=== PATIENT | female | born 1975 | race Caucasian/White ===

== ENCOUNTER 2024-09-29 11:07 | Outpatient (AMB) | payer OTHER, SELFPAY ==
--- NOTE | 2024-09-29 11:08 | MHC.OFFVIS ---
Vital Signs 09/29/24 11:25 Height 4 ft 10 in Weight 117 lb 4.575 oz BMI 24.5 BP 97/77 Blood Pressure Location Rt brachial Position Sitting Pulse 75 Intake Visit Reasons: pre colonoscopy Intake Note: New patient in office today for colonoscopy screening. CC: Patient reports not having BM for 4- 5 days, abdominal bloating, occasional vomiting and light blood in the stool. She reports hx of bowel obstruction about 10 years ago that required surgery. Bereavement Counselor Required: No Allergies Penicillins Allergy (Unknown, Verified 09/29/24 11:27) Unknown HPI HPI pre colonoscopy: Details: 49-year-old female here for preprocedural meeting to discuss a screening colonoscopy. [facility] [place]. PMX Dilated cardiomyopathy Bipolar disorder Chronic alcoholism in remission Pancreatitis COPD Smoker Hypothyroid Alcoholic fatty liver Lumbar degenerative disc disease Cervical degenerative disc disease Anxiety disorder Seizures - controlled * SURGICAL HISTORY Right carpal tunnel release Right 1st carpometacarpal arthroplasty Hysterectomy Cervical disc compression with diskectomy Cataract surgery bilateral ? small bowel resection Appendectomy breast lymph node removed * ALLERGIES Penicillin * [employer] [facility]: none TODAY'S VISIT She says she has a hx 10 yrs ago of bowel obstruction, s/p surgery. She was supposed to have a colonoscopy but vomited the prep. She suffers CIC and at times won't move her bowels q4-7 days. She has had no success with using colace, miralax, enemas. No upper GI problems. She drinks mostly soda but no coffee or tea, eats a lot of veggies but not so many fruits. Her COPD is well controlled as are her cardiac and seizure problems. There are no prior problems with anesthesia or sedation. NO ID problems. No known CRC or polyps. We will start her on a trial of bisacodyl 2 tablets in the evening and if this is unsuccessful progress to something fancy or like Linzess or Trulance. Return office visit in 3 weeks [facility] Medical History (Updated 09/29/24 @ 12:03 by ALICIA Mahmood) Postoperative intestinal obstruction Surgical History (Updated 09/29/24 @ 11:31 by RICKY Wang) Hx of appendectomy H/O cervical discectomy History of hysterectomy H/O hand surgery History of carpal tunnel release Status post laser cataract surgery of both eyes Family History (Updated 09/29/24 @ 11:33 by RICKY Wang) Maternal Aunt Lung cancer Family/Other Breast cancer Metastasis from breast cancer Social History (Updated 09/29/24 @ 11:34 by RICKY Wang) Alcohol intake: current Alcohol intake frequency: a few times a month Alcohol type: beer Patient Tobacco Use Status: Current everyday Tobacco user Cigarettes Per Day: 10 Years Smoked: 28 years Substance Use Type: Marijuana Review of Systems Const Denies fatigue, Denies fever(s), Denies night sweats, Denies poor appetite and Denies weight loss ENT Reports Normal hearing present, Denies dental pain, Denies dysphagia, Denies hearing loss, Denies mouth pain, Denies odynophagia, Denies throat swelling, Denies tongue swelling and Reports other (Dentition adequate) Card Reports no additional complaints Resp Reports no additional complaints GI Details: Denies abdominal pain, Denies melena, Denies bloating, Denies hematochezia, Reports constipation, Denies GI cramping, Denies dysphagia, Denies excessive flatus, Denies early satiety, Denies heartburn, Denies diarrhea, Denies nausea, Denies odynophagia, Denies vomiting and Denies hematemesis Skin/Breast Denies pruritus, Denies lesions, Denies rash and Denies jaundice Neuro Reports Normal hearing present and Denies Abnormal speech present Endo Denies fatigue Aller/Immun Denies throat swelling and Denies tongue swelling Physical Exam Vital Signs: Last Vital Signs Pulse 75 09/29/24 11:25 BP 97/77 09/29/24 11:25 BMI result Body Mass Index 24.5 Const General: cooperative, no acute distress, well developed and well groomed Nutritional Appearance: average body habitus and well nourished Orientation/consciousness: oriented to person, oriented to place and oriented to time Limitations: No language barrier HEENT Head: Yes normocephalic and Yes atraumatic Eyes General: appearance normal, both eyes and all related structures Pupils: Equal, round and reactive pupils present Neck Neck: Yes normal visual inspection and Yes no lymphadenopathy Thyroid: Thyroid normal Resp Effort & Inspection: normal respiratory effort and able to speak in complete sentences Auscultation: clear to auscultation bilaterally Cardio Rate: regular rate Rhythm: regular rhythm Heart sounds: Normal, physiologic split S2 sound present Peripheral pulses: radial pulses present and posterior tibial pulses present GI Inspection: Yes distended and No Abdominal panniculus present Palpation (GI): Soft to palpation, nontender, no guarding, not rigid and No hepatosplenomegaly present Percussion: Yes normal to percussion Auscultation: Hyperactive bowel sounds present Rectal Exam - Female: deferred Abdomen image: 1. surgical scars 2. 3. 4. Skin General skin exam: no rashes or lesions noted, turgor normal, skin not dry, no jaundice, No spider nevi and no striae Rashes: no rashes Nails: normal Neuro General: oriented to person, oriented to place and oriented to time Cranial nerves: Yes Equal, round and reactive pupils present and Yes Normal hearing present Speech: No Abnormal speech present Extrem General: Yes normal to inspection, No clubbing, No cyanosis and No edema Psych Appearance: grossly normal and well kempt Mental Status: mental status grossly normal Speech and movement: Normal speech and movement present Affect: normal affect Attitude: cooperative Thought process: Normal thought process present and not confabulating Thought content: Normal thought content present Insight: Fair insight present (Psych) Judgement: Fair judgement present (Psych) Assessment & Plan Assessment & Plan (1) Pre-op examination: Code(s): Z01.818 - Encounter for other preprocedural examination Category: Medical (2) COPD (chronic obstructive pulmonary disease): Code(s): J44.9 - Chronic obstructive pulmonary disease, unspecified Category: Medical (3) Chronic alcoholism in remission: Code(s): F10.21 - Alcohol dependence, in remission Category: Medical (4) Dilated cardiomyopathy: Code(s): I42.0 - Dilated cardiomyopathy Category: Medical (5) Chronic idiopathic constipation: Code(s): K59.04 - Chronic idiopathic constipation Category: Medical Plan She says she has a hx 10 yrs ago of bowel obstruction, s/p surgery. She was supposed to have a colonoscopy but vomited the prep. She suffers CIC and at times won't move her bowels q4-7 days. She has had no success with using colace, miralax, enemas. No upper GI problems. She drinks mostly soda but no coffee or tea, eats a lot of veggies but not so many fruits. Her COPD is well controlled as are her cardiac and seizure problems. There are no prior problems with anesthesia or sedation. NO ID problems. No known CRC or polyps. We will start her on a trial of bisacodyl 2 tablets in the evening and if this is unsuccessful progress to something fancy or like Linzess or Trulance. Return office visit in 3 weeks Orders: Orders Comprehensive Met. Panel 09/29/24 Z01.818 - Encounter for other preprocedural examination, K59.04 - Chronic idiopathic constipation Complete Blood Count Auto Diff 09/29/24 Z01.818 - Encounter for other preprocedural examination, K59.04 - Chronic idiopathic constipation Colonoscopy - GI Use Only 09/29/24 Z01.818 - Encounter for other preprocedural examination, K59.04 - Chronic idiopathic constipation Medications: New bisacodyl (Dulcolax (bisacodyl)) 10 mg (2 x 5 mg) PO BEDTIME 60 tabs 3RF 30 days K59.04 - Chronic idiopathic constipation polyethylene glycol 3350 (Miralax) 238 grams PO ONCE 238 grams 0RF colonoscopy prep 1 day bisacodyl (Dulcolax (bisacodyl)) 10 mg (2 x 5 mg) PO BEDTIME 4 tabs 0RF 2 days Coding Level of Care Code New Pt Level 3 (92384) Diagnoses Pre-op examination Z01.818 COPD (chronic obstructive pulmonary disease) J44.9 Chronic alcoholism in remission F10.21 Dilated cardiomyopathy I42.0 Chronic idiopathic constipation K59.04
[2024-09-29 11:25] VITALS: BP 97/77; PULSE 75; BMI 24.5
== END 2024-09-29 12:52 | disposition home or self-care (01) ==
PROVIDERS: PCP Physician Assistant Medical; Visit Provider Nurse Practitioner
DX: K59.04 Chronic idiopathic constipation (principal); Z01.818 Encounter for other preprocedural examination; Z12.11 Encounter for screening for malignant neoplasm of colon; F10.21 Alcohol dependence, in remission; I42.0 Dilated cardiomyopathy
CPT/HCPCS: 99203

== ENCOUNTER → 2024-09-29 11:07 | Outpatient (BNVA) | payer OTHER, SELFPAY | PROVIDERS: PCP Physician Assistant Medical; Visit Provider Nurse Practitioner | DX: Z01.818 Encounter for other preprocedural examination (principal); J44.9 Chronic obstructive pulmonary disease, unspecified; F10.21 Alcohol dependence, in remission; I42.9 Cardiomyopathy, unspecified; K59.04 Chronic idiopathic constipation | CPT/HCPCS: 99202 ==